=== PATIENT | male | born 1945 | race Caucasian/White ===

== ENCOUNTER 2016-07-01 06:38 | Inpatient (IN) | payer MEDICARE, OTHER ==
--- NOTE | ~2016-07-01 | DS ---
Discharge Summary [facility] [address] [place]. [address] NAME: CARLOS LY : 43 STATUS : DIS IN PAT#: [id number] AGE: 71 ADM/REG DATE : 07/01/16 MR#: [id number] REPORT SERV DATE: 07/17/16 DICTATED BY: DAVID WIGGINS DATE: 07/16/16 REPORT STATUS : Draft TRANSCRIBED BY: JOAN DATE: 07/16/16 Data Collection from hospitalization DISCHARGE DIAGNOSES: 1. Aortic insufficiency. 2. Decreased left ventricular ejection fraction. 3. Hypertension. 4. Sleep apnea. 5. Former smoker. CONSULTATIONS: Darrin Westbrook M.D. PROCEDURES PERFORMED: Aortic valve replacement with a 23-mm pericardial tissue valve, Quinn type, with transesophageal echocardiography on 07/01/2016. PATHOLOGY: Aortic valve - delicate valve with no vegetations present. MEDICATIONS: Aspirin 81 mg daily, Cymbalta 30 mg daily, Neurontin 600 mg twice a day, [place] 5/325 one to two tablets every six hours as needed, Toprol-XL 25 mg every morning, Entresto one tablet twice a day, and Flomax 0.4 mg at bedtime. He was instructed not to continue amlodipine. CONDITION AT DISCHARGE: Stable. DISPOSITION: The patient was discharged home on a low-cholesterol, low-sodium, 1800-calorie cardiac/diabetic diet with activities as instructed. He would follow up with Dr. Darrin Westbrook on 07/22/2016. He would follow up with me on 08/04/2016. He would follow up with his primary care provider as needed. HOSPITAL COURSE: This is a 71-year-old man who has been referred by Dr. Darrin Westbrook with severe aortic insufficiency and diminished left trigger function and normal coronary arteries. Treatment options were discussed and it was elected to proceed with surgical intervention. He was admitted to the hospital at this time for further evaluation and treatment. Upon admission, he was taken to the operating room where he underwent the above-mentioned procedure. He tolerated this well, and there were no complications. On postop day #1, he was seen by Dr. Darrin Westbrook. Low-dose dobutamine was being given. The patient had frequent PVCs. Amiodarone was going to be started orally for now. was being weaned as tolerated. He would be placed in a LifeVest once he was out of the Cardiovascular ICU. On 07/03/2016, he did complain of some surgical pain. His wound looked okay. He had decreased urine output. He still complained of some pain. Diuresis was performed. His pain medications were adjusted. Dobutamine weaning continued. Amiodarone was continued. On 07/04/2016, his chest tube was removed. He was in a sinus rhythm with PVCs. He was hemodynamically stable. His current therapy continued. Pacing wires were removed. He was transferred to the floor. He was given a dose of diuretic. His amiodarone was decreased. Entresto was going to began. Discharge planning was performed. He had no new complaints. Discharge Summary [address] [address] NAME: CARLOS LY : 43 STATUS : DIS IN PAT#: [id number] AGE: 71 ADM/REG DATE : 07/01/16 MR#: [id number] REPORT SERV DATE: 07/17/16 DICTATED BY: DAVID WIGGINS DATE: 07/16/16 REPORT STATUS : Draft TRANSCRIBED BY: MODL DATE: 07/16/16 He said he was feeling well. He was tolerating the Entresto. An echocardiogram was going to be performed to reassess his left ventricular ejection fraction. Echocardiogram was performed. He seemed to be progressing well. He did have a bowel movement. On 07/08/2016, he had no complaints. He said he felt well. Left ventricular ejection fraction was 20%- 30%. Discharge instructions were given. Due to his improved and stable condition, he was discharged home with the above-stated instructions. Information collected by: Elaine Jenkins I submit the above information as my discharge summary. TG/JOAN David Wiggins M.D. / [id number] CC: Arpit Chandra VICKI R Alexander Stratienko, M.D.
--- NOTE | ~2016-07-01 | OP ---
Record Of Operation [facility] [address] [place]. [address] NAME: CARLOS LY : 43 STATUS : ADM IN PAT#: [id number] AGE: 71 ADM/REG DATE : 07/01/16 MR#: [id number] REPORT SERV DATE: 07/01/16 DICTATED BY: DAVID WIGGINS DATE: 07/01/16 REPORT STATUS : Draft TRANSCRIBED BY: MODL DATE: 07/01/16 DATE OF PROCEDURE: 07/01/2016 PREOPERATIVE DIAGNOSIS: Severe aortic insufficiency with diminished left trigger function. POSTOPERATIVE DIAGNOSIS: Severe aortic insufficiency with diminished left trigger function. OPERATIVE PROCEDURE: Aortic valve replacement with a 23 mm pericardial tissue valve, Quinn type; with transesophageal echocardiography. OPERATIVE SURGEON: David Wiggins M.D. ANESTHESIA: General endotracheal anesthesia, AA. Chest tubes placed were two. Pacing wires two on the right ventricle and two on the right atrium. PERTINENT HISTORY: The patient is a 71-year-old gentleman, referred by Dr. Westbrook with severe aortic insufficiency, diminished left trigger function, and normal coronary arteries. OPERATIVE FINDINGS: The patient had a trileaflet aortic valve which was severely insufficient. Aortic caliber was normal. The coronary arteries were normal. Left ventricular function was diminished. OPERATIVE PROCEDURE: The patient was taken to the operating room, placed in supine position. Anesthesia was obtained. The patient was prepped and draped in usual sterile fashion. Transesophageal echocardiogram was performed demonstrating the severe aortic insufficiency with no mitral valve disease. Midline sternotomy incision was made. Sternum divided. Heparin infused. The patient was started on cardiopulmonary bypass. Left ventricular vent was placed for the right superior pulmonary vein. Retrograde and antegrade cardioplegia cannulas were both applied. Cross-clamp was applied. Cardioplegia was infused in antegrade and retrograde fashion over a period of 15 minutes. The aortotomy was made in a hockey- stick fashion. Aortic valve was examined, found to be trileaflet and severely insufficient. The valve was excised. A 23 mm sizer fit within the aortic anulus. Two Ethibond pledgeted sutures were placed on the aortic anulus with pledgets on ventricular side. These passed through the sewing ring of a 23 mm pericardial valve Quinn type. The valve was seated on the anulus. All sutures were tied with a core knot. Aortotomy was closed with running 4-0 Prolene suture. Air was removed from left ventricle. Crossclamp was removed. Good hemostasis was noted. Two pacing wires were placed in the right ventricle and two in the right atrium, and two chest tubes were placed. The patient was warmed to 36 centigrade, maintained a sinus rhythm, was bradycardic, and with atrial pacing with mild inotropic support, he was weaned from cardiopulmonary bypass. Protamine sulfate was infused. Hemostasis was adequate. The sternum was closed with sternal cables x4. Soft tissue was closed in the usual manner. The patient tolerated the procedure well, was taken back to the ICU stable in condition. Record Of Operation [place] [id number] [facility] [place] [place]. [address] NAME: CARLOS LY : 43 STATUS : ADM IN LOCATED WITHIN [facility]#: [id number] AGE: 71 ADM/REG DATE : 07/01/16 MR#: [id number] REPORT SERV DATE: 07/01/16 DICTATED BY: DAVID WIGGINS DATE: 07/01/16 REPORT STATUS : Draft TRANSCRIBED BY: JOAN DATE: 07/01/16 MICHELLE/JOAN David Wiggins M.D. / [id number] CC: Arpit Chandra Vicki R Alexander Stratienko, M.D.
[~2016-07-01 06:38] MED LIST: ASA5GR PO; ASABAYER PO; BUSPAR15 M1 PO; CYMBALTA30 PO; DIOVAN HCT320 MG/25 PO; FISH-EPA1000 MG PO; FLOMAX4 PO; LISINOPRIL40 MG PO; MOBIC7.5 PO; MULTIVITAMI1 PO; NEUR600 PO; NORV5 PO; PLAVIX PO; PROTONIX20 MG PO; PROZAC PO; SACU1TAB PO; TOPXL25 PO; VITAMIN B-121000 MC1 SL
[2016-07-01 07:20] LABS: ASCORBIC ACID (UR NOT ORDER) NEG (NEG); BILIRUBIN, URINE NEGATIVE (NEG); KETONE, URINE NEGATIVE (NEG); LEUKOCYTE ESTERASE(NOT OR NEG (NEG); WBC (NOT ORDERED) (RFLEX) 1 (0-5)
[2016-07-01 08:00] LABS: A/G RATIO 1.1 (0.7-1.9); ALBUMIN 3.6 G/DL (3.5-5.0); ALKALINE PHOSPHATASE 110 U/L (45-117); BUN (BLOOD UREA NITROGEN) 9 MG/DL (6-23); CALCIUM, SERUM 8.5 MG/DL (8.5-10.4); CHLORIDE, SERUM 106 MMOL/L (96-112); CO2 (CARBON DIOXIDE) 30 MMOL/L (24-34); CREATININE 0.91 MG/DL (0.70-1.30); GFR AFRICAN AMERICAN 97 ML/MIN (>=60); GFR NON AFRICAN AMERICAN 84 ML/MIN (>=60); GLOBULIN 3.2 G/DL (2.5-4.1); GLUCOSE, SERUM 112 MG/DL (60-99); IRON BINDING CAPACITY 364 MCG/DL (250-450); SGOT(AST) 19 U/L (5-40); SGPT(ALT) 31 U/L (5-65); SODIUM, SERUM 143 MMOL/L (135-148); TOTAL BILIRUBIN 0.7 MG/DL (0-1.2); TOTAL PROTEIN 6.8 G/DL (6.0-8.5)
[2016-07-01 12:57] LABS: BE (BASE EXCESS) -1.6 MEQ/L (0 +/- 2.5); CARBOXYHEMOGLOBIN 0.3 % (0-3); HCO3 (ACTUAL BICARBONATE) 22.2 MEQ/L (23-27); HEMOBLOGIN CONTENT 13.3 G/DL (14-18); INSTRUMENT SERIAL # 11843; METHEMOGLOBIN 0.5 % (0-3); MODE SIMV; O2 CONTENT 19.2 VOL% (18-24); OPERATOR ID 18642; PCO2 (CO2 TENSION) 35 MMHG (35-45); PO2 (O2 TENSION) 331 MMHG (79-93); PRESSURE SUPPORT 0 cm.H2O; SAMPLE Arterial; TIDAL VOLUME 800 ML; pH 7.43 (7.37-7.43)
[2016-07-01 13:35] LABS: HEMATOCRIT 36.6 % (40.0-51.0); HEMOGLOBIN 12.6 g/dL (13.6-17.8); PLATELET COUNT 116 10/3/uL (150-400)
[2016-07-01 13:41] LABS: INTERNATIONAL NORMAL RATI 1.4 UNITS (-); PARTIAL THROMBO TIME 32.9 SEC (22.5-37.2)
[2016-07-01 13:42] LABS: PROTIME (NOT ORD) 16.6 SEC (12.0-14.5)
[2016-07-01 13:44] LABS: BUN (BLOOD UREA NITROGEN) 9 MG/DL (6-23); CALCIUM, SERUM 8.2 MG/DL (8.5-10.4); CHLORIDE, SERUM 112 MMOL/L (96-112); CREATININE 0.86 MG/DL (0.70-1.30); GFR AFRICAN AMERICAN 100 ML/MIN (>=60); GFR NON AFRICAN AMERICAN 87 ML/MIN (>=60); GLUCOSE, SERUM 92 MG/DL (60-99); POTASSIUM, SERUM 3.9 MMOL/L (3.5-5.3); SODIUM, SERUM 144 MMOL/L (135-148)
[2016-07-01 13:45] LABS: CO2 (CARBON DIOXIDE) 24 MMOL/L (24-34)
[2016-07-01 16:00] LABS: BE (BASE EXCESS) -5.3 MEQ/L (0 +/- 2.5); CARBOXYHEMOGLOBIN 0.2 % (0-3); DEVICE NC; HCO3 (ACTUAL BICARBONATE) 19.6 MEQ/L (23-27); HEMOBLOGIN CONTENT 13.6 G/DL (14-18); INSTRUMENT SERIAL # 11843; METHEMOGLOBIN 0.5 % (0-3); O2 CONTENT 18.6 VOL% (18-24); OPERATOR ID 18642; PCO2 (CO2 TENSION) 36 MMHG (35-45); PO2 (O2 TENSION) 116 MMHG (79-93); SAMPLE Arterial; pH 7.35 (7.37-7.43)
[2016-07-01 20:22] LABS: HEMATOCRIT 37.1 % (40.0-51.0); HEMOGLOBIN 12.8 g/dL (13.6-17.8)
[2016-07-01 20:32] LABS: BUN (BLOOD UREA NITROGEN) 11 MG/DL (6-23); CHLORIDE, SERUM 115 MMOL/L (96-112); CO2 (CARBON DIOXIDE) 24 MMOL/L (24-34); CREATININE 0.93 MG/DL (0.70-1.30); GFR AFRICAN AMERICAN 95 ML/MIN (>=60); GFR NON AFRICAN AMERICAN 82 ML/MIN (>=60); GLUCOSE, SERUM 108 MG/DL (60-99); POTASSIUM, SERUM 4.2 MMOL/L (3.5-5.3); SODIUM, SERUM 146 MMOL/L (135-148)
[2016-07-02 03:59] LABS: BUN (BLOOD UREA NITROGEN) 12 MG/DL (6-23); CALCIUM, SERUM 7.9 MG/DL (8.5-10.4); CHLORIDE, SERUM 113 MMOL/L (96-112); CO2 (CARBON DIOXIDE) 22 MMOL/L (24-34); GFR AFRICAN AMERICAN 87 ML/MIN (>=60); GFR NON AFRICAN AMERICAN 75 ML/MIN (>=60); GLUCOSE, SERUM 99 MG/DL (60-99); POTASSIUM, SERUM 4.4 MMOL/L (3.5-5.3); SODIUM, SERUM 144 MMOL/L (135-148)
[2016-07-02 04:02] LABS: HEMATOCRIT 35.8 % (40.0-51.0); HEMOGLOBIN 12.1 g/dL (13.6-17.8); MEAN CORPUS HGB CONC 33.8 g/dL (32.0-36.0); MEAN CORPUSCULAR HEMOGLOB 33.7 pg (26.0-34.0); MEAN PLATELET VOLUME 10.9 fL (9.2-13.0); PLATELET COUNT 130 10/3/uL (150-400); RBC DISTRIBUTION WIDTH 13.2 % (12.0-16.0); RED CELL COUNT 3.59 10/6/uL (4.7-6.1)
[2016-07-02 04:08] LABS: MANUAL DIFF YES %; MEAN CORPUSCULAR VOLUME 99.7 fL (80-100); WHITE BLOOD CELLS 11.4 10/3/uL (4.5-10.5)
[2016-07-02 04:27] LABS: BAND NEUTROPHILS 4 %; LYMPHOCYTES 7 %; MONOCYTES 9 %; MONOCYTES ABSOLUTE (CALC) 1.03 10/3/uL (0.21-1.20); NEUTROPHILS ABSOLUTE (CALC) 9.58 10/3/uL (2.02-8.40); PLATELET ESTIMATE SLT DEC (ADEQUATE); SEGMENTED NEUTROPHIL (0) 80 %; TOTAL NUCLEATED CELLS 100
[2016-07-02 04:29] LABS: RBC MORPHOLOGY NORM (NORMAL)
[2016-07-02 15:52] LABS: HEMATOCRIT 35.2 % (40.0-51.0)
[2016-07-02 16:00] LABS: POTASSIUM, SERUM 3.9 MMOL/L (3.5-5.3)
[2016-07-02 17:46] LABS: BUN (BLOOD UREA NITROGEN) 15 MG/DL (6-23); CALCIUM, SERUM 8.5 MG/DL (8.5-10.4); CHLORIDE, SERUM 107 MMOL/L (96-112); CO2 (CARBON DIOXIDE) 18 MMOL/L (24-34); CREATININE 0.95 MG/DL (0.70-1.30); GFR AFRICAN AMERICAN 92 ML/MIN (>=60); GFR NON AFRICAN AMERICAN 80 ML/MIN (>=60); GLUCOSE, SERUM 102 MG/DL (60-99); SODIUM, SERUM 138 MMOL/L (135-148)
[2016-07-02 19:32] LABS: BASOPHILS 0.1 %; BASOPHILS ABSOLUTE 0.01 10/3/uL (0.0-0.16); EOSINOPHILS 0.1 %; EOSINOPHILS ABSOLUTE 0.01 10/3/uL (0.0-0.53); IMMATURE GRANULOCYTES 0.3 %; IMMATURE GRANULOCYTES ABSOLUTE 0.03 10/3/uL (0.0-0.11); LYMPHOCYTES 6.6 %; LYMPHOCYTES ABSOLUTE 0.75 10/3/uL (0.67-4.30); MEAN CORPUS HGB CONC 33.9 g/dL (32.0-36.0); MEAN CORPUSCULAR HEMOGLOB 33.5 pg (26.0-34.0); MEAN CORPUSCULAR VOLUME 98.9 fL (80-100); MEAN PLATELET VOLUME 11.5 fL (9.2-13.0); MONOCYTES 13.6 %; MONOCYTES ABSOLUTE 1.54 10/3/uL (0.21-1.20); NEUTROPHILS 79.3 %; PLATELET COUNT 113 10/3/uL (150-400); RBC DISTRIBUTION WIDTH 13.1 % (12.0-16.0); RED CELL COUNT 3.55 10/6/uL (4.7-6.1); WHITE BLOOD CELLS 11.3 10/3/uL (4.5-10.5)
[2016-07-02 19:34] LABS: MANUAL DIFF NO %
[2016-07-03 03:40] LABS: BASOPHILS 0.1 %; BASOPHILS ABSOLUTE 0.01 10/3/uL (0.0-0.16); EOSINOPHILS 0.3 %; EOSINOPHILS ABSOLUTE 0.02 10/3/uL (0.0-0.53); HEMATOCRIT 31.8 % (40.0-51.0); IMMATURE GRANULOCYTES 0.3 %; IMMATURE GRANULOCYTES ABSOLUTE 0.02 10/3/uL (0.0-0.11); LYMPHOCYTES 10.5 %; LYMPHOCYTES ABSOLUTE 0.81 10/3/uL (0.67-4.30); MEAN CORPUS HGB CONC 34.6 g/dL (32.0-36.0); MEAN CORPUSCULAR VOLUME 98.1 fL (80-100); MEAN PLATELET VOLUME 10.8 fL (9.2-13.0); MONOCYTES 13.4 %; MONOCYTES ABSOLUTE 1.03 10/3/uL (0.21-1.20); NEUTROPHILS 75.4 %; PLATELET COUNT 85 10/3/uL (150-400); RBC DISTRIBUTION WIDTH 13.1 % (12.0-16.0); RED CELL COUNT 3.24 10/6/uL (4.7-6.1); WHITE BLOOD CELLS 7.7 10/3/uL (4.5-10.5)
[2016-07-03 03:45] LABS: MANUAL DIFF NO %
[2016-07-03 03:52] LABS: BUN (BLOOD UREA NITROGEN) 12 MG/DL (6-23); CALCIUM, SERUM 8.1 MG/DL (8.5-10.4); CHLORIDE, SERUM 106 MMOL/L (96-112); CREATININE 0.74 MG/DL (0.70-1.30); GFR AFRICAN AMERICAN 107 ML/MIN (>=60); GFR NON AFRICAN AMERICAN 92 ML/MIN (>=60); GLUCOSE, SERUM 89 MG/DL (60-99); POTASSIUM, SERUM 3.7 MMOL/L (3.5-5.3); SODIUM, SERUM 137 MMOL/L (135-148)
[2016-07-03 03:57] LABS: CO2 (CARBON DIOXIDE) 22 MMOL/L (24-34)
[2016-07-03 14:06] LABS: POTASSIUM, SERUM 4.2 MMOL/L (3.5-5.3)
[2016-07-04 04:10] LABS: BUN (BLOOD UREA NITROGEN) 11 MG/DL (6-23); CALCIUM, SERUM 8.3 MG/DL (8.5-10.4); CHLORIDE, SERUM 105 MMOL/L (96-112); CO2 (CARBON DIOXIDE) 25 MMOL/L (24-34); CREATININE 0.67 MG/DL (0.70-1.30); GFR AFRICAN AMERICAN 111 ML/MIN (>=60); GFR NON AFRICAN AMERICAN 96 ML/MIN (>=60); GLUCOSE, SERUM 115 MG/DL (60-99); POTASSIUM, SERUM 4.4 MMOL/L (3.5-5.3); SODIUM, SERUM 139 MMOL/L (135-148)
[2016-07-04 04:14] LABS: BASOPHILS 0.1 %; BASOPHILS ABSOLUTE 0.01 10/3/uL (0.0-0.16); EOSINOPHILS 1.1 %; EOSINOPHILS ABSOLUTE 0.08 10/3/uL (0.0-0.53); HEMATOCRIT 32.5 % (40.0-51.0); HEMOGLOBIN 11.2 g/dL (13.6-17.8); IMMATURE GRANULOCYTES 0.3 %; IMMATURE GRANULOCYTES ABSOLUTE 0.02 10/3/uL (0.0-0.11); LYMPHOCYTES 12.2 %; LYMPHOCYTES ABSOLUTE 0.91 10/3/uL (0.67-4.30); MEAN CORPUS HGB CONC 34.5 g/dL (32.0-36.0); MEAN CORPUSCULAR HEMOGLOB 34.4 pg (26.0-34.0); MEAN CORPUSCULAR VOLUME 99.7 fL (80-100); MEAN PLATELET VOLUME 11.3 fL (9.2-13.0); MONOCYTES 12.2 %; MONOCYTES ABSOLUTE 0.91 10/3/uL (0.21-1.20); NEUTROPHILS 74.1 %; NEUTROPHILS ABSOLUTE 5.54 10/3/uL (2.02-8.40); PLATELET COUNT 98 10/3/uL (150-400); RBC DISTRIBUTION WIDTH 12.7 % (12.0-16.0); RED CELL COUNT 3.26 10/6/uL (4.7-6.1); WHITE BLOOD CELLS 7.5 10/3/uL (4.5-10.5)
[2016-07-04 04:15] LABS: MANUAL DIFF NO %
[2016-07-05 05:37] LABS: BASOPHILS 0.3 %; BASOPHILS ABSOLUTE 0.02 10/3/uL (0.0-0.16); EOSINOPHILS 1.3 %; HEMATOCRIT 34.3 % (40.0-51.0); HEMOGLOBIN 11.9 g/dL (13.6-17.8); IMMATURE GRANULOCYTES 0.7 %; IMMATURE GRANULOCYTES ABSOLUTE 0.05 10/3/uL (0.0-0.11); LYMPHOCYTES 15.5 %; LYMPHOCYTES ABSOLUTE 1.17 10/3/uL (0.67-4.30); MANUAL DIFF NO %; MEAN CORPUS HGB CONC 34.7 g/dL (32.0-36.0); MEAN CORPUSCULAR HEMOGLOB 34.2 pg (26.0-34.0); MEAN CORPUSCULAR VOLUME 98.6 fL (80-100); MEAN PLATELET VOLUME 10.7 fL (9.2-13.0); MONOCYTES 14.3 %; MONOCYTES ABSOLUTE 1.08 10/3/uL (0.21-1.20); NEUTROPHILS 67.9 %; NEUTROPHILS ABSOLUTE 5.13 10/3/uL (2.02-8.40); PLATELET COUNT 130 10/3/uL (150-400); RBC DISTRIBUTION WIDTH 12.8 % (12.0-16.0); RED CELL COUNT 3.48 10/6/uL (4.7-6.1); WHITE BLOOD CELLS 7.6 10/3/uL (4.5-10.5)
[2016-07-05 05:48] LABS: BUN (BLOOD UREA NITROGEN) 14 MG/DL (6-23); CALCIUM, SERUM 8.7 MG/DL (8.5-10.4); CHLORIDE, SERUM 104 MMOL/L (96-112); CO2 (CARBON DIOXIDE) 26 MMOL/L (24-34); CREATININE 0.72 MG/DL (0.70-1.30); GFR AFRICAN AMERICAN 108 ML/MIN (>=60); GFR NON AFRICAN AMERICAN 93 ML/MIN (>=60); GLUCOSE, SERUM 112 MG/DL (60-99); SODIUM, SERUM 140 MMOL/L (135-148)
[2016-07-06 04:54] LABS: BASOPHILS 0.5 %; BASOPHILS ABSOLUTE 0.03 10/3/uL (0.0-0.16); EOSINOPHILS 2.5 %; EOSINOPHILS ABSOLUTE 0.15 10/3/uL (0.0-0.53); HEMATOCRIT 34.5 % (40.0-51.0); HEMOGLOBIN 11.8 g/dL (13.6-17.8); IMMATURE GRANULOCYTES 1.3 %; IMMATURE GRANULOCYTES ABSOLUTE 0.08 10/3/uL (0.0-0.11); LYMPHOCYTES 22.4 %; LYMPHOCYTES ABSOLUTE 1.35 10/3/uL (0.67-4.30); MEAN CORPUS HGB CONC 34.2 g/dL (32.0-36.0); MEAN CORPUSCULAR HEMOGLOB 33.2 pg (26.0-34.0); MEAN CORPUSCULAR VOLUME 97.2 fL (80-100); MEAN PLATELET VOLUME 10.2 fL (9.2-13.0); MONOCYTES 13.3 %; NEUTROPHILS ABSOLUTE 3.62 10/3/uL (2.02-8.40); PLATELET COUNT 148 10/3/uL (150-400); RBC DISTRIBUTION WIDTH 12.8 % (12.0-16.0); RED CELL COUNT 3.55 10/6/uL (4.7-6.1)
[2016-07-06 04:56] LABS: MANUAL DIFF NO %
[2016-07-06 05:10] LABS: BUN (BLOOD UREA NITROGEN) 14 MG/DL (6-23); CALCIUM, SERUM 8.7 MG/DL (8.5-10.4); CHLORIDE, SERUM 103 MMOL/L (96-112); CO2 (CARBON DIOXIDE) 26 MMOL/L (24-34); CREATININE 0.73 MG/DL (0.70-1.30); GFR AFRICAN AMERICAN 107 ML/MIN (>=60); GFR NON AFRICAN AMERICAN 93 ML/MIN (>=60); GLUCOSE, SERUM 106 MG/DL (60-99); POTASSIUM, SERUM 3.7 MMOL/L (3.5-5.3); SODIUM, SERUM 141 MMOL/L (135-148)
[2016-07-07 05:48] LABS: BASOPHILS 0.5 %; BASOPHILS ABSOLUTE 0.03 10/3/uL (0.0-0.16); EOSINOPHILS 2.4 %; EOSINOPHILS ABSOLUTE 0.15 10/3/uL (0.0-0.53); HEMATOCRIT 34.8 % (40.0-51.0); IMMATURE GRANULOCYTES 1.8 %; IMMATURE GRANULOCYTES ABSOLUTE 0.11 10/3/uL (0.0-0.11); LYMPHOCYTES 20.9 %; LYMPHOCYTES ABSOLUTE 1.28 10/3/uL (0.67-4.30); MEAN CORPUS HGB CONC 34.5 g/dL (32.0-36.0); MEAN CORPUSCULAR HEMOGLOB 33.7 pg (26.0-34.0); MEAN CORPUSCULAR VOLUME 97.8 fL (80-100); MEAN PLATELET VOLUME 10.1 fL (9.2-13.0); MONOCYTES 17.9 %; NEUTROPHILS 56.5 %; NEUTROPHILS ABSOLUTE 3.46 10/3/uL (2.02-8.40); RBC DISTRIBUTION WIDTH 12.7 % (12.0-16.0); RED CELL COUNT 3.56 10/6/uL (4.7-6.1); WHITE BLOOD CELLS 6.1 10/3/uL (4.5-10.5)
[2016-07-07 05:50] LABS: PLATELET COUNT 196 10/3/uL (150-400)
[2016-07-07 05:51] LABS: MANUAL DIFF NO %
[2016-07-07 05:57] LABS: BUN (BLOOD UREA NITROGEN) 12 MG/DL (6-23); CALCIUM, SERUM 8.5 MG/DL (8.5-10.4); CHLORIDE, SERUM 106 MMOL/L (96-112); CO2 (CARBON DIOXIDE) 28 MMOL/L (24-34); CREATININE 0.65 MG/DL (0.70-1.30); GFR AFRICAN AMERICAN 113 ML/MIN (>=60); GFR NON AFRICAN AMERICAN 97 ML/MIN (>=60); GLUCOSE, SERUM 105 MG/DL (60-99); POTASSIUM, SERUM 3.9 MMOL/L (3.5-5.3); SODIUM, SERUM 141 MMOL/L (135-148)
[2016-07-08 05:29] LABS: BASOPHILS 0.6 %; BASOPHILS ABSOLUTE 0.04 10/3/uL (0.0-0.16); HEMOGLOBIN 13.1 g/dL (13.6-17.8); IMMATURE GRANULOCYTES ABSOLUTE 0.13 10/3/uL (0.0-0.11); LYMPHOCYTES 24.4 %; LYMPHOCYTES ABSOLUTE 1.61 10/3/uL (0.67-4.30); MEAN CORPUS HGB CONC 33.9 g/dL (32.0-36.0); MEAN CORPUSCULAR HEMOGLOB 33.6 pg (26.0-34.0); MEAN PLATELET VOLUME 9.8 fL (9.2-13.0); MONOCYTES 14.1 %; MONOCYTES ABSOLUTE 0.93 10/3/uL (0.21-1.20); NEUTROPHILS 55.9 %; NEUTROPHILS ABSOLUTE 3.69 10/3/uL (2.02-8.40); RBC DISTRIBUTION WIDTH 12.7 % (12.0-16.0); WHITE BLOOD CELLS 6.6 10/3/uL (4.5-10.5)
[2016-07-08 05:32] LABS: HEMATOCRIT 38.6 % (40.0-51.0); MANUAL DIFF NO %; PLATELET COUNT 260 10/3/uL (150-400)
[2016-07-08 05:48] LABS: BUN (BLOOD UREA NITROGEN) 10 MG/DL (6-23); CHLORIDE, SERUM 104 MMOL/L (96-112); CO2 (CARBON DIOXIDE) 28 MMOL/L (24-34); CREATININE 0.85 MG/DL (0.70-1.30); GFR AFRICAN AMERICAN 101 ML/MIN (>=60); GFR NON AFRICAN AMERICAN 87 ML/MIN (>=60); GLUCOSE, SERUM 105 MG/DL (60-99); SODIUM, SERUM 141 MMOL/L (135-148)
[2016-07-08] MEDS ORDERED: HALF81 PO (10:54)
[2016-07-08] MEDS ORDERED: SACU1TAB7 PO (10:56)
[2016-07-08] MEDS ORDERED: NORCO1 TA1 PO (10:57)
[2016-10-20] MEDS ORDERED: SACU1TAB PO (03:22)
[2016-10-21] MEDS ORDERED: XALAT OPH (10:17)
[2016-10-22] MEDS ORDERED: K500 PO (09:54)
[2016-10-22] MEDS ORDERED: PCET PO (09:54)
== END 2016-07-08 12:27 | disposition home or self-care (01) | DRG 219 ==
LOC: SDC/OF 06:38 → CVICU 10:36 → 5NO 07-04 15:14
PROVIDERS: Anesthesiology; Thoracic Surgery (Cardiothoracic Vascular Surgery)
PROC: 02RF08Z Replacement of Aortic Valve with Zooplastic Tissue, Open Approach (ICD-10-PCS; principal; 2016-07-01 09:00)
PROC: 5A1221Z Performance of Cardiac Output, Continuous (ICD-10-PCS; 2016-07-01 09:00)
PROC: B246ZZ4 Ultrasonography of Right and Left Heart, Transesophageal (ICD-10-PCS; 2016-07-01 09:00)
DX: I35.0 Nonrheumatic aortic (valve) stenosis (principal); I50.23 Acute on chronic systolic (congestive) heart failure; I42.8 Other cardiomyopathies; G47.33 Obstructive sleep apnea (adult) (pediatric); J45.909 Unspecified asthma, uncomplicated; I11.0 Hypertensive heart disease with heart failure
CPT/HCPCS: 36415; 71010; 71020; 74000; 80048; 80053; 81001; 82330; 82803; 82805; 82947; 82962; 83036; 83550; 83735; 84132; 84295; 85014; 85018; 85025; 85049; 85347; 85610; 85730; 86850; 86900; 86901; 86920; 87641; 88305; 93005; 93312; 93320; 93325; 94002; 94640; 94660; 94770; A9270-GY; C1713; C1725; C1729; C1769; C1894; C8929; J0690; J1170; J1200; J1644; J1885; J1940; J2150; J2250; J2370; J2440; J2720; J3010; J3475; J3480; P9045; P9047; Q9957